=== PATIENT | female | born 2000 | race Caucasian/White ===

== ENCOUNTER 2024-12-08 09:24 | Emergency (ER) | payer SELFPAY ==
[~2024-12-08] VITALS: Ht 170.2 cm; Wt 72.6 kg
[2024-12-08 09:44] VITALS: BP 155/93; PULSE 82; RESP 18; TEMP 98.3; O2SAT 100
[2024-12-08] MEDS ORDERED: COMPAZINE ONE (09:49)
[2024-12-08] MEDS ORDERED: TORADOL ONE (09:49)
[2024-12-08] MEDS: COMPAZINE IM STA (09:53)
[2024-12-08] MEDS: TORADOL IM STA (09:54)
[2024-12-08 10:14] LABS: LEUKOCYTE ESTERASE ,URINE 1+ (NEGATIVE); NITRATE,URINE NEGATIVE (NEGATIVE)
[2024-12-08 10:19] LABS: APPEARANCE,URINE CLOUDY; UA COLOR YELLOW
[2024-12-08 10:41] VITALS: BP 117/55; PULSE 79; RESP 18; O2SAT 98
== END 2024-12-08 10:48 | disposition home or self-care (01) ==
LOC: ER 09:24
DX: G43.909 Migraine, unspecified, not intractable, without status migrainosus (principal); N76.0 Acute vaginitis; B96.89 Other specified bacterial agents as the cause of diseases classified elsewhere
CPT/HCPCS: 99284; 96372; 87086; 81001; 81025; J1885; J0780